=== PATIENT | male | born 1960 | race Two or more races ===

== ENCOUNTER 2023-12-07 22:16 | Emergency (ER) | payer MEDICAID ==
[~2023-12-07] VITALS: Ht 172.7 cm; Wt 76.4 kg
[2023-12-07 22:24] VITALS: TEMP 99
[2023-12-07] MEDS: PROPARACAINE HCL 0.5% 15 ML OPHTHALMIC SOLUTION OU ONE (23:53)
[2023-12-08] MEDS ORDERED: MOXI3DRO25 OU (01:37)
[2023-12-08 01:42] VITALS: BP 148/88; PULSE 87; RESP 20; O2SAT 97
== END 2023-12-08 01:46 | disposition home or self-care (01) ==
LOC: EMS 22:17
DX: H10.213 Acute toxic conjunctivitis, bilateral (principal)
CPT/HCPCS: 99284; J9035; Z7502